=== PATIENT | male | born 1980 | race Caucasian/White ===

== ENCOUNTER 2020-07-10 21:29 | Emergency (ER) | payer OTHER ==
[~2020-07-10] VITALS: Ht 165.1 cm; Wt 92.7 kg
[~2020-07-10 21:29] MED LIST: METO25TA6 PO
[2020-07-10] MEDS ORDERED: IBUPROFEN 800 MG TABLET PO ONE (23:15)
[2020-07-10] MEDS ORDERED: ACETAMINOPHEN 500 MG TABLET PO ONE (23:15)
[2020-07-10 23:32] VITALS: BP 150/99
== END 2020-07-10 23:32 | disposition home or self-care (01) ==
LOC: EMS 21:30
DX: U07.1 COVID-19 (principal); B34.9 Viral infection, unspecified; J06.9 Acute upper respiratory infection, unspecified; M79.10 Myalgia, unspecified site; I10 Essential (primary) hypertension
CPT/HCPCS: 99283; U0003